=== PATIENT | female | born 2000 | race Caucasian/White ===

== ENCOUNTER 2020-01-08 13:57 | Emergency (ER) | payer OTHER ==
[2020-01-08 14:12] VITALS: TEMP 98.4
--- NOTE | 2020-01-08 14:33 | ED ---
General Adult HPI - General Chief complaint: Trauma Stated complaint: Fall from horse Time Seen by Provider: 01/08/20 14:21 Source: patient, RN notes reviewed Mode of arrival: ambulatory Limitations: no limitations - History of Present Illness Initial comments: Patient is a pleasant 19-year-old female sent to the emergency department after a fall off a horse. The worst it started bucking the patient slid off to the side. Patient did fall and struck her head. Patient was wearing a helmet. Patient feels she probably lost consciousness for a split second. Patient does have moderate discomfort of her posterior head, 6/10. Patient did sustain abrasions to her chin and left clavicle region. No neck or back pain. No chest pain or dyspnea. No abdominal pain. No extremity injury. - Related Data Home Medications Medication Instructions Recorded Confirmed No Known Home Medications 01/08/20 01/08/20 Allergies Allergy/AdvReac Type Severity Reaction Status Date / Time Penicillins Allergy Rash/Hives Verified 01/08/20 15:08 Purple Dye Allergy Rash/Hives Uncoded 01/08/20 14:12 Review of Systems ROS Statement: Those systems with pertinent positive or pertinent negative responses have been documented in the HPI. ROS Other: All systems not noted in ROS Statement are negative. Constitutional: Denies: fever Eyes: Denies: eye pain ENT: Denies: ear pain Respiratory: Denies: cough Cardiovascular: Denies: chest pain Endocrine: Denies: fatigue Gastrointestinal: Denies: abdominal pain Genitourinary: Denies: dysuria Musculoskeletal: Denies: back pain Skin: Denies: rash Neurological: Reports: headache. Denies: weakness Past Medical History Past Medical History: No Reported History History of Any Multi-Drug Resistant Organisms: None Reported Past Surgical History: No Surgical Hx Reported Past Psychological History: No Psychological Hx Reported Smoking Status: Never smoker Past Alcohol Use History: None Reported Past Drug Use History: None Reported General Exam Limitations: no limitations General appearance: alert, in no apparent distress Head exam: Present: atraumatic, normocephalic Eye exam: Present: normal appearance, PERRL, EOMI ENT exam: Present: normal oropharynx Neck exam: Present: normal inspection. Absent: tenderness Respiratory exam: Present: normal lung sounds bilaterally Cardiovascular Exam: Present: regular rate, normal rhythm GI/Abdominal exam: Present: soft. Absent: tenderness Extremities exam: Present: normal inspection, full ROM, other (Minimal tenderness left clavicle with abrasion) Back exam: Present: normal inspection. Absent: vertebral tenderness Neurological exam: Present: alert, oriented X3, CN II-XII intact. Absent: motor sensory deficit Psychiatric exam: Present: normal affect, normal mood Skin exam: Present: abrasion (Chin and left clavicle and anterior neck) Course Vital Signs 01/08/20 14:08 Temperature 98.4 F Pulse Rate 79 Respiratory 18 Rate Blood Pressure 148/100 O2 Sat by Pulse 100 Oximetry Medical Decision Making - Medical Decision Making Patient reevaluated and resting comfortably in bed. Patient and mother updated on results - Radiology Data Radiology results: report reviewed (Computed tomography scan brain cervical spine reveals no acute manic abnormality.), image reviewed (Chest x-ray shows no acute process) Disposition Clinical Impression: Fall, Head injury Disposition: HOME SELF-CARE Condition: Stable Instructions (If sedation given, give patient instructions): Head Injury (ED), Concussion (ED) Additional Instructions: Avoid any head injuries until released by [id number] Tylenol as needed. Return for change in mental status, persistent vomiting, weakness, worsening symptoms or other concerns or difficulty in breathing. Is patient prescribed a controlled substance at d/c from ED?: No Referrals: Emma Zuniga MD [STAFF PHYSICIAN] - 1-2 days Time of Disposition: 16:00
[2020-01-08] MEDS ORDERED: BACITRACIN OINT 1 EACH PACKET TOPICAL ONE (15:06)
[2020-01-08] MEDS ORDERED: ACETAMINOPHEN TAB 500 MG TAB PO STA (15:06)
--- NOTE | 2020-01-08 15:24 | CT ---
EXAMINATION TYPE: CT brain baileyine wo con DATE OF EXAM: 01/08/2020 COMPARISON: None HISTORY: 19-year-old female with pain after fall from horse CT DLP: 1304.8 mGycm Automated exposure control for dose reduction was used. Technique: Examination of the head was done in axial plane without intravenous contrast. Coronal and sagittal reconstructions performed. CT of the cervical spine was obtained in axial plane without intravenous injection of contrast mater ial. Coronal and sagittal reformatted images were obtained from the axial views for evaluation of f ractures, spinal alignment and canal. FINDINGS: Head: There is no evidence of acute intracranial hemorrhage, acute ischemic changes, mass, mass-effect, or extra-axial fluid collection. There is no effacement of cerebral sulci or basal subarachnoid cister ns. There is no hydrocephalus. There is no midline shift. Oden-white matter distinction is preserv ed. Paranasal sinuses and mastoid air cells are well pneumatized. Orbits and globes are intact. Cerumen w ithin the bilateral external auditory canals Cervical spine: Cervical junction abnormality, predental space widening, or prevertebral soft tissue. Alignment of the cervical spine is maintained. No acute fractures seen. Corticated ossific density lo cated along the dorsum of the T1 spinous process suggesting sequela of remote injury. Assessment of the spinal canal from C7 and below limited due to artifact from patient's shoulders. Th e more cephalad spinal canal is patent. Sagittal and coronal reformatted images confirm above findings. COMBINED IMPRESSION: 1. No acute intracranial abnormality seen. 2. No acute fracture or malalignment of the cervical spine.
--- NOTE | 2020-01-08 15:25 | XR ---
EXAMINATION TYPE: XR chest 1V portable DATE OF EXAM: 01/08/2020 Comparison: None Clinical History: 19-year-old female with pain after fall Findings: Low lung volumes and crowded vascular markings. No consolidation, air leak, or pleural effusion. Hear t normal size. Aorta within normal limits. Impression: Mild hypoventilatory changes. No definite acute process.
[2020-01-08 16:11] VITALS: BP 134/80; PULSE 70; RESP 17
== END 2020-01-08 16:11 | disposition home or self-care (01) ==
LOC: EC 13:57
DX: S00.81XA Abrasion of other part of head, initial encounter (principal); Z88.0 Allergy status to penicillin; Z91.048 Other nonmedicinal substance allergy status; V80.010A Animal-rider injured by fall from or being thrown from horse in noncollision accident, initial encounter; Y93.52 Activity, horseback riding; Y92.89 Other specified places as the place of occurrence of the external cause
CPT/HCPCS: 70450; 71045; 72125; 99284